=== PATIENT | male | born 1960 | race Caucasian/White ===

== ENCOUNTER → 2017-07-14 | Outpatient (CLI) | payer OTHER, MEDICARE ==
[~2017-07-14] VITALS: Ht 185.4 cm; Wt 120.2 kg
[~2017-07-14] MED LIST: ALLOPURINOL 30300 M1 PO; ASPIR 8181 MG PO; CENTRUM SILVER1 EAC4 PO; HYDROCODON-ACE1 EAC7 PO; LIPITOR10 MG PO; LOSARTAN POTAS100 MG PO; SYNTHROID88 MCG PO; TRAMADOL 50 MG50 MG PO
--- NOTE | ~2017-07-14 | P ---
[facility] [place] [address] PROCEDURE REPORT Name: BRENDON LEGGETT Room #: REG [facility]#: [id number] Admission: 07/14/17 Attend Phys: Darryn Morris MD Discharge: Date of : 58 Report #: [id number] THIS REPORT FOR: //name// CC: DARRYN Morris BRIEF HISTORY: The patient is a 57-year-old male for his first average risk screening colonoscopy. PREOPERATIVE DIAGNOSIS: Average risk screening colonoscopy. POSTOPERATIVE DIAGNOSIS: Multiple colon polyps. MEDICATIONS: Deep sedation with propofol per anesthesia. SPECIMEN: 1. Polyp splenic flexure. 2. Polyp, proximal descending colon. 3. Polyp, distal descending colon. 4. Polyps x 3 proximal sigmoid colon. 5. Polyp, mid sigmoid colon. 6. Rectal polyp. ESTIMATED BLOOD LOSS: 3 mL. PROCEDURE: Colonoscopy to cecum and terminal ileum with snare polypectomy. FINDINGS: Prior to propofol sedation, the procedure of colonoscopy discussed with the patient as well as potential risks and its complications. He indicates he understands and desires to proceed. DESCRIPTION OF PROCEDURE: With the patient in left lateral decubitus position, digital examination was completed which revealed no abnormalities. Subsequently, the [employer]dra video colonoscope was introduced in the rectum and advanced under direct vision to the cecum. Done with minimal difficulty. The cecum was identified by the ileocecal valve and appendiceal orifice. I was able to visualize the distal segment of the terminal ileum, which was inspected and noted to be unremarkable. At that point, the scope was slowly withdrawn and careful circumferential views were obtained including retroflexing the scope in the ascending colon. Scope withdrawn and careful circumferential views were obtained. The prep was excellent. No mucosal abnormalities were noted until we reached the splenic flexure at which point a 5-6 mm sessile polyp was seen and removed by cold snare polypectomy. A slightly smaller polyp was seen in the proximal descending colon. In the distal descending colon, a diminutive polyp was seen and removed by biopsy. Scope was further withdrawn and in the proximal sigmoid, 3 polyps were seen. They were all sessile. They ranged in size from [facility] [address] [place] [address] PROCEDURE REPORT Name: BRENDON LEGGETT [facility] [id number] Admission: 07/14/17 Attend Phys: Darryn Morris MD Discharge: Date of : 58 Report #: [id number] 4-6 mm and were removed by cold snare polypectomy. The scope was further withdrawn and a 4-5 mm polyp was seen and removed by cold snare polypectomy from the mid sigmoid colon. In the rectum, a 5 mm polyp was seen and removed by cold snare polypectomy and recovered. Scope was further withdrawn and no abnormalities were seen. Upon retroflexion, no abnormalities were seen. Scope was withdrawn and the patient tolerated the procedure well. CONDITION OF THE PATIENT UPON DISCHARGE: Following procedure, the patient drowsy and arousable, will be discharged home when fully ambulatory. INSTRUCTIONS TO THE PATIENT AND FAMILY AT THE TIME OF DISCHARGE: Multiple polyps identified and removed as described above. We will follow up on the path and make further recommendations. However, due to the number of polyps, most of which appear to be adenomatous, I would suggest return in 3 years for a surveillance colonoscopy. He will return to care of Dr. Darryn Dumont and return to see me as needed. This is the patient's first colonoscopy. Withdrawal times from cecum was 28 minutes and 3 seconds. <ELECTRONICALLY SIGNED> By: Darryn Morris MD 07/15/17 [id number] Darryn Morris MD /nt
--- NOTE | ~2017-07-14 | S ---
[facility] [address] [place] [address] SURGICAL PATH RPT PROCEDURE Name: BRENDON LEGGETT Room #: REG [facility].#: [id number] Admission: 07/14/17 Date of : 58 Discharge: Report #: [id number] Path Case #: [id number] PATHOLOGY REPORT DRAFT COLLECTION DATE: 07/14/2017 RECEIVED DATE: 07/15/2017 SPECIMEN(S) RECEIVED: A.Polyp at splenic flexure B.Polyp at proximal descending C.Polyp at distal descending D.Polyp at proximal sigmoid E.Polyp at mid sigmoid F.Polyp-rectal
== END | disposition home or self-care (01) ==
LOC: GI 09:11
DX: Z12.11 Encounter for screening for malignant neoplasm of colon (principal); D12.3 Benign neoplasm of transverse colon; D12.4 Benign neoplasm of descending colon; D12.5 Benign neoplasm of sigmoid colon; D12.8 Benign neoplasm of rectum; I10 Essential (primary) hypertension; E03.9 Hypothyroidism, unspecified; E78.5 Hyperlipidemia, unspecified; M10.9 Gout, unspecified
CPT/HCPCS: 62110; 62900